=== PATIENT | male | born 1965 | race Caucasian/White ===

== ENCOUNTER → 2017-01-04 | Outpatient (CLI) | payer BC ==
--- NOTE | 2017-01-04 12:57 | MR ---
EXAMINATION TYPE: MR knee LT wo con DATE OF EXAM: 01/04/2017 COMPARISON: NONE HISTORY: Left knee pain TECHNIQUE: Multiplanar, multisequence imaging of the left knee is performed without IV contrast. FINDINGS: Medial and lateral menisci appear intact. No tear is identified. There may be some very holli nt subtle increased signal within the substance of the lateral meniscus anterior and posterior horns. Minimal degenerative change is not excluded. CRUCIATE LIGAMENTS: The anterior and posterior cruciate ligaments are intact and unremarkable. COLLATERAL LIGAMENTS: The medial collateral ligament and lateral collateral ligament complex are inta ct and unremarkable. EXTENSOR MECHANISM: Visualized quadriceps and patellar tendons are intact. EFFUSION: No significant suprapatellar joint effusion. POPLITEAL CYST: No popliteal/anne cyst. TRICOMPARTMENT SPACES: Preserved CARTILAGE: Preserved BONE MARROW SIGNAL: No focal abnormal marrow signal is appreciated. OTHER: No additional significant abnormality is appreciated. IMPRESSION: No suspicious acute changes. No significant anatomic distortion. Exam is nearly within normal limits. Very minimal degenerative change within the lateral meniscus cannot be entirely excluded.
== END | disposition home or self-care (01) ==
LOC: RADMRIMAIN 10:54
PROVIDERS: ATTEND Orthopaedic Surgery
DX: M25.562 Pain in left knee (principal)

== ENCOUNTER 2017-03-13 09:51 | Day surgery (SDC) | payer BC ==
--- NOTE | 2017-03-12 11:37 | HP ---
HISTORY AND PHYSICAL Surgery is 03/13/2017. Vel Osorio is a 51-year-old patient who was seen with progressive left knee pain. We discussed treatment options. He elected to proceed with arthroscopy. Consent was obtained. PAST MEDICAL HISTORY: Hypertension. PAST SURGICAL HISTORY: Appendectomy, cholecystectomy, bilateral shoulder arthroscopy, sinus surgery. DAILY MEDICATIONS: Losartan. ALLERGIES: None reported. SOCIAL HISTORY: Patient denies current tobacco use. PHYSICAL EXAMINATION: Physical evaluation of the left knee: Range of motion is 0 to 125 degrees. Tenderness along the medial joint line. Positive medial Michelle's. Ligaments stable. Hip rotation without pain. Distal neurovascular exam intact. Radiographs of the left knee revealed moderate medial compartment and lateral compartment osteoarthritis. MRI of the left knee revealed an abnormal the lateral meniscus. IMPRESSION: Internal derangement left knee with meniscal tear versus osteochondral tear. PLAN: Left knee arthroscopy with partial meniscectomy versus chondroplasty and debridement. Surgery scheduled for 03/13/2017. MMODL / IJN: [id number] /
[~2017-03-13 09:51] MED LIST: DEXAMETHASONE SOD PHOSPHATE 10 MG/ML 1 ML VIAL IV ONE; LACTATED RINGERS 1,000 ML IV SCH; MIDAZOLAM 2 MG/2 ML VIAL IV PRN; ONDANSETRON 4 MG/2 ML VIAL IVP ONE; SCOPOLAMINE 1.5MG/72HR PATCH TRANSDERM ONE; ceFAZolin IN SWFI 2 GM/20 ML SYRINGE IVP ONE
[2017-03-13] MEDS ORDERED: LIDOCAINE 1% 20 ML VIAL (10MG/ML) FOR IV START INTRADERMA ONE (10:45)
[2017-03-13] MEDS ORDERED: SUCCINYLCHOLINE CHLORIDE VIAL 200 MG/10 ML VIAL IV ONE (12:06)
[2017-03-13] MEDS ORDERED: PROPOFOL 10 MG/ML 20 ML VIAL IV ONE (12:06)
[2017-03-13] MEDS ORDERED: fentaNYL (PF) 50 MCG/ML 2 ML AMP ONE (12:06)
[2017-03-13] MEDS ORDERED: MIDAZOLAM 2 MG/2 ML VIAL ONE (12:06)
[2017-03-13] MEDS ORDERED: LIDOCAINE 1% INJ 10MG/ML (20 ML MDV) ONE (12:06)
[2017-03-13] MEDS ORDERED: BUPIVACAINE (PF) 0.25% 30 ML VIAL SQ ONE (12:06)
--- NOTE | 2017-03-13 12:55 | P.OP ---
Date of Procedure: 03/13/17 Preoperative Diagnosis: Internal derangement left knee Postoperative Diagnosis: 1. Tear medial and lateral meniscus left knee 2. 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 Grade 2 chondromalacia medial tibial plateau left knee 4. Reactive synovitis medial and suprapatellar compartments left knee Procedure(s) Performed: 1. Arthroscopic partial medial and lateral meniscectomy left knee 2. Arthroscopic chondroplasty patella left knee 3. Arthroscopic partial synovectomy medial and suprapatellar compartments left knee Implants: None Anesthesia: MALIK, local Surgeon: Bertram Lynn Estimated Blood Loss (ml): 10 Pathology: none sent Condition: stable Disposition: PACU Indications for Procedure: 51-year-old patient seen with progressive left knee pain. After treatment options were discussed, he elected to proceed with arthroscopy. Operative Findings: See description of procedure Description of Procedure: Patient was taken to the operative suite. Patient underwent a general anesthetic by the department of anesthesia. Patient was given preoperative antibiotics. The left lower extremity was placed in a well-padded arthroscopic leg vicente. The left leg was prepped and draped in the normal sterile orthopedic fashion. A lateral parapatellar and suprapatellar incision was made. Trochars were inserted. Arthroscopy was initiated. Suprapatellar pouch revealed thick reactive synovitis. The patellofemoral joint appeared to articulate congruently. There was grade 1/2 chondromalacia patella with some small osteochondral tears. There were grade 1 chondromalacia changes of the femoral sulcus.. The scope was guided into the medial gutter. No loose bodies or plica were identified. The scope was then guided into the medial compartment. A medial parapatellar incision was made. Trocar inserted followed by probe. There was small radial tear posterior horn medial meniscus. There were grade 2, she changes of the medial tibial plateau without osteochondral tears. There was some reactive synovitis anteriorly. The medial femoral condyle revealed grade 1 chondromalacia with no osteochondral tears. I performed a partial medial meniscectomy down to stable tissue. I performed a partial synovectomy. The residual meniscus was stable. Scope and probe were then guided into the intercondylar notch. Cruciates were identified, probed and found to be stable. The scope and probe were then guided into lateral compartment. It was small radial tear mid body lateral meniscus. There were no osteochondral deficits, no loose bodies or reactive synovitis. I performed a partial lateral meniscectomy down to stable tissue. The residual meniscus was stable. The scope was in guided back into the suprapatellar compartment. I introduced a motorized shaver into the super patellar compartment. I performed a chondroplasty of the patella. I performed a partial synovectomy. Shaver was removed. I took one more look on the entire knee, no residual debris. Instruments were now removed from the joint. The joint was infiltrated with .25% Marcaine. Steri-Strips were applied to the portal sites. Sterile dressings were applied. The patient was placed into a GORDON hose. No tourniquet was utilized. The patient was awakened, transferred to a bed and taken to recovery stable satisfactory condition.
[2017-03-13 13:03] VITALS: RESP 16; TEMP 96.7
[2017-03-13] MEDS: HYDROmorphone 0.5 MG/0.5 ML SYRINGE IVP PRN ×2 (13:13→13:22)
[2017-03-13] MEDS ORDERED: HYDROcodone/APAP 5-325MG 1 EACH TAB PO ONE (14:00)
[2017-03-13 14:23] VITALS: BP 131/73; PULSE 72
== END 2017-03-13 15:11 | disposition home or self-care (01) ==
LOC: OR 09:51
PROVIDERS: ATTEND Orthopaedic Surgery
DX: S83.242A Other tear of medial meniscus, current injury, left knee, initial encounter (principal); S83.282A Other tear of lateral meniscus, current injury, left knee, initial encounter; X58.XXXA Exposure to other specified factors, initial encounter; M22.42 Chondromalacia patellae, left knee; M65.862 Other synovitis and tenosynovitis, left lower leg; I10 Essential (primary) hypertension; E78.5 Hyperlipidemia, unspecified; Z79.899 Other long term (current) drug therapy
CPT/HCPCS: 29880; J1100; J0690; J2405; J1170

== ENCOUNTER → 2018-10-14 | Outpatient (CLI) | payer BC ==
[2018-10-14 11:22] LABS: HCT 40.3 % (39.0-53.0); HGB 13.3 gm/dL (13.0-17.5); MCH 30.2 pg (25.0-35.0); MCV 91.4 fL (80.0-100.0); Mean Platelet Volume 8.4; Platelet Count 131 k/uL (150-450); RBC 4.42 m/uL (4.30-5.90); WBC 4.8 k/uL (3.8-10.6)
[2018-10-14 11:30] LABS: African American GFR (CKD) >90 (>60 ml/min/1.73 sqM); Anion Gap 9 mmol/L; Blood Urea Nitrogen 17 mg/dL (9-20); Carbon Dioxide 25 mmol/L (22-30); Chloride 107 mmol/L (98-107); Potassium 4.2 mmol/L (3.5-5.1); Sodium 141 mmol/L (137-145)
== END | disposition home or self-care (01) ==
LOC: LABPAT 10:10
PROVIDERS: ATTEND Internal Medicine Interventional Cardiology
DX: Z01.812 Encounter for preprocedural laboratory examination (principal); R07.9 Chest pain, unspecified
CPT/HCPCS: 36415; 80051; 82565; 84520; 85027

== ENCOUNTER → 2018-10-27 | Day surgery (SDC) | payer BC ==
[2018-10-17 10:36] VITALS: BMI 26.0
[~2018-10-27] MED LIST changes: +ALPRAZolam 0.25 MG TAB PO PRN; +ALPRAZolam 0.5 MG TAB PO PRN; +ASPIRIN 325 MG TAB PO STA; +ATORVASTATIN 80 MG TAB PO STA; -DEXAMETHASONE SOD PHOSPHATE 10 MG/ML 1 ML VIAL IV ONE; +HEPARIN SODIUM 1,000 UN/ML (10ML VL) IV ONE; +HEPARIN SODIUM 1,000 UN/ML (10ML VL) ONE; +IOPAMIDOL-370 100ML BTL INJ ONE; -LACTATED RINGERS 1,000 ML IV SCH; +LIDOCAINE 1% INJ 10MG/ML (20 ML MDV) ONE; +LIDOCAINE 1% INJ 10MG/ML (20 ML MDV) SQ ONE; +MIDAZOLAM (PF) 2 MG/2 ML VIAL IVP ONE; -MIDAZOLAM 2 MG/2 ML VIAL IV PRN; +NITROGLYCERIN SL TABS 0.4 MG TAB SUBLINGUAL PRN; -ONDANSETRON 4 MG/2 ML VIAL IVP ONE; +RX INFO: IV CONTRAST WAS GIVEN 1 EACH MISC MISCELLANE PRN; -SCOPOLAMINE 1.5MG/72HR PATCH TRANSDERM ONE; +SODIUM CHLORIDE 0.9% 1,000 ML IV ONE; +SODIUM CHLORIDE 0.9% 1,000 ML IV SCH; +SODIUM CHLORIDE 0.9% 1,000 ML in EMPTY BAG 1 BAG IV ONE; +VERAPAMIL 2.5 MG/ML 2 ML AMP ONE; +VERAPAMIL SYRINGE (5 MG/10 ML) INTRAARTER ONE; -ceFAZolin IN SWFI 2 GM/20 ML SYRINGE IVP ONE
[2018-10-27 07:09] VITALS: RESP 16; TEMP 98.1
--- NOTE | 2018-10-27 08:39 | CC ---
CARDIAC CATHETERIZATION REPORT DATE OF SERVICE: 10/27/2018 PERFORMING PHYSICIAN: Keyur Candelaria MD. PROCEDURE PERFORMED: 1. Selective right and left coronary angiogram. 2. Left heart catheterization. INDICATION: This is a pleasant 53-year-old gentleman with history of hypertension and dyslipidemia, was experiencing shortness of breath or chest pain with exertion concerning for angina. Because of that, a heart catheterization was advised. APPROACH: Right radial artery. COMPLICATION: None. LEVEL OF SEDATION: Moderate. Sedation length of 13 minutes. PROCEDURE DESCRIPTION: After obtaining an informed consent, the patient was brought to the cardiac medical laboratory technicians. The right radial artery was cannulated using micropuncture technique, the micropuncture wire passed easily, then I placed a 6-Kosovan sheath in the right radial artery. After that, I did give the patient 2 mg of verapamil IA and 8000 units of heparin IV. Selective right and left coronary angiogram performed using JR4 and JL3.5 catheters. Left heart catheterization was performed using 6-Kosovan pigtail catheter. The procedure was completed without any complication. SELECTIVE CORONARY ANGIOGRAM: 1. The right coronary artery is a large caliber vessel and it is a dominant vessel and appeared to be angiographically normal. It distally bifurcates into PDA and PLV branches, both appeared to be angiographically normal. 2. The left main is angiographically normal. It bifurcates into the left circumflex and left anterior descending artery. 3. The left circumflex is a large caliber vessel. It is a nondominant vessel. The left circumflex is angiographically normal. 4. The LAD is angiographically normal. In the midportion, it gives rise into the first and second diagonal branches, both appeared to be angiographically normal. 5. HEMODYNAMICS- The left ventricular end-diastolic pressure was about 12 mmHg without significant gradient across the aortic valve. CONCLUSION: 1. Normal coronary angiogram. 2. Mildly elevated left ventricular end-diastolic pressure. POSTPROCEDURE MANAGEMENT: 1. Medical treatment. 2. Follow up with the patient. MMODL / IJN: [id number] /
--- NOTE | 2018-10-27 08:39 | LTR ---
DATE OF SERVICE: 10/27/2018 RE: Vel Osorio Dear Dr. Ivey; Mr. Vel Osorio underwent a heart catheterization today and that revealed normal coronaries. I want to thank you for allowing us to participate in his care and please do not hesitate to call if you have any questions or concerns. Sincerely, MD LUIZA Verduzco / TIA: [id number] /
[2018-10-27 12:13] VITALS: BP 124/77; PULSE 60
== END | disposition home or self-care (01) ==
LOC: CATHCVL 06:21
PROVIDERS: ATTEND Internal Medicine Interventional Cardiology
DX: R07.9 Chest pain, unspecified (principal); R06.02 Shortness of breath
CPT/HCPCS: 93458; C1769; C1894; J2001; J1644; Q9967; J2250

== ENCOUNTER 2018-11-26 07:43 | Day surgery (SDC) | payer BC ==
[2018-11-20 12:02] VITALS: BMI 26.0
[~2018-11-26 07:43] MED LIST changes: -ALPRAZolam 0.25 MG TAB PO PRN; -ALPRAZolam 0.5 MG TAB PO PRN; -ASPIRIN 325 MG TAB PO STA; -ATORVASTATIN 80 MG TAB PO STA; -HEPARIN SODIUM 1,000 UN/ML (10ML VL) IV ONE; -HEPARIN SODIUM 1,000 UN/ML (10ML VL) ONE; -IOPAMIDOL-370 100ML BTL INJ ONE; +LIDOCAINE 1% 20 ML VIAL (10MG/ML) FOR IV START INTRADERMA PRN; -LIDOCAINE 1% INJ 10MG/ML (20 ML MDV) ONE; -LIDOCAINE 1% INJ 10MG/ML (20 ML MDV) SQ ONE; -MIDAZOLAM (PF) 2 MG/2 ML VIAL IVP ONE; -NITROGLYCERIN SL TABS 0.4 MG TAB SUBLINGUAL PRN; -RX INFO: IV CONTRAST WAS GIVEN 1 EACH MISC MISCELLANE PRN; -SODIUM CHLORIDE 0.9% 1,000 ML IV ONE; -SODIUM CHLORIDE 0.9% 1,000 ML IV SCH; -SODIUM CHLORIDE 0.9% 1,000 ML in EMPTY BAG 1 BAG IV ONE; -VERAPAMIL 2.5 MG/ML 2 ML AMP ONE; -VERAPAMIL SYRINGE (5 MG/10 ML) INTRAARTER ONE
[2018-11-26 08:11] VITALS: TEMP 97.7
[2018-11-26] MEDS: LACTATED RINGERS 1,000 ML IV SCH ×2 (08:19→08:24)
[2018-11-26] MEDS ORDERED: PROPOFOL 10 MG/ML 20 ML VIAL IV ONE (08:23)
[2018-11-26] MEDS ORDERED: LIDOCAINE 1% INJ 10MG/ML (20 ML MDV) ONE (08:23)
--- NOTE | 2018-11-26 08:26 | P.GSHP ---
History of Present Illness H&P Date: 11/26/18 Chief Complaint: Colon cancer screening Patient here today for screening colonoscopy. He has not had previously. No bowel related complaints. No family history of colon cancer. Past Medical History Past Medical History: Hyperlipidemia, Hypertension, Osteoarthritis (OA), Sleep Apnea/CPAP/BIPAP Additional Past Medical History / Comment(s): IDIOPATHIC THROMBOCYTOPENIA. History of Any Multi-Drug Resistant Organisms: None Reported Past Surgical History: Appendectomy, Cholecystectomy, Heart Catheterization, Orthopedic Surgery Additional Past Surgical History / Comment(s): BILATERAL ROTATOR CUFF REPAIR. LEFT KNEE ARTHROSCOPY Past Anesthesia/Blood Transfusion Reactions: No Reported Reaction Smoking Status: Never smoker - Past Family History Mother Family Medical History: Cancer Additional Family Medical History / Comment(s): . Medications and Allergies Home Medications Medication Instructions Recorded Confirmed Type Losartan [Cozaar] 50 mg PO QAM 03/08/17 11/26/18 History Multivitamins, Thera [Multivitamin 1 tab PO DAILY 03/08/17 11/26/18 History (formulary)] Rosuvastatin [Crestor] 10 mg PO QAM 03/08/17 11/26/18 History Pantoprazole Sodium [Protonix] 40 mg PO DAILY 11/20/18 11/26/18 History Allergies Allergy/AdvReac Type Severity Reaction Status Date / Time No Known Allergies Allergy Verified 11/26/18 08:11 Surgical - Exam Vital Signs Temp Pulse Resp BP Pulse Ox 97.7 F 60 17 120/80 99 11/26/18 08:10 11/26/18 08:10 11/26/18 08:10 11/26/18 08:10 11/26/18 08:10 Physical exam: General: Well-developed, well-nourished HEENT: Normocephalic, sclerae nonicteric Abdomen: Nontender, nondistended Extremities: No edema Neuro: Alert and oriented Assessment and Plan (1) Colon cancer screening Narrative/Plan: Will proceed with colonoscopy at this time Current Visit: Yes Status: Acute Code(s): Z12.11 - ENCOUNTER FOR SCREENING FOR MALIGNANT NEOPLASM OF COLON SNOMED Code(s): 084866391
--- NOTE | 2018-11-26 08:56 | P.PCN ---
Date of Procedure: 11/26/18 Procedure(s) Performed: PREOPERATIVE DIAGNOSIS: Colon cancer screening POSTOPERATIVE DIAGNOSIS: Normal exam PROCEDURE: Colonoscopy ANESTHESIA: MAC SURGEON: Alton Bland M.D. SPECIMENS: None ENDOSCOPIC PROCEDURE: The patient was placed on the endoscopy table in the left decubitus position. The Olympus pediatric colonoscope was inserted into the anus and passed under direct visualization to the base of the proximal transverse colon. The scope was unable to advance into the cecum despite multiple maneuvers and adjusting the tension on the scope. We were utilizing the entire length of the scope. At that point I decided to remove the pediatric colonoscope and switched to an adult colonoscope. With the use of the adult colonoscope we were able to advance to the cecum however we could not intubate the base of the cecum and see beneath the ileocecal valve. The base of the cecum was not well-visualized. No abnormalities however were evident with the view provided. The ascending transverse descending sigmoid and rectum appeared normal as well. There was no visible diverticulosis. Digital rectal examination was normal. The patient was taken to the recovery room in stable condition per anesthesia guidelines. RECOMMENDATIONS: Increase fiber. Follow-up colonoscopy 10 years.
[2018-11-26 09:14] VITALS: BP 127/80; PULSE 55; RESP 16
== END 2018-11-26 09:25 | disposition home or self-care (01) ==
LOC: ORWHC2ENDO 07:43
PROVIDERS: ATTEND Surgery
DX: Z12.11 Encounter for screening for malignant neoplasm of colon (principal); I10 Essential (primary) hypertension; E78.5 Hyperlipidemia, unspecified; I20.9 Angina pectoris, unspecified; M19.90 Unspecified osteoarthritis, unspecified site; K21.9 Gastro-esophageal reflux disease without esophagitis; D69.3 Immune thrombocytopenic purpura; G47.33 Obstructive sleep apnea (adult) (pediatric); Z79.899 Other long term (current) drug therapy; Z90.49 Acquired absence of other specified parts of digestive tract; Z80.9 Family history of malignant neoplasm, unspecified
CPT/HCPCS: G0121; J2001; J2704

== ENCOUNTER 2024-05-03 08:44 | Observation (INO) | payer BC ==
[2024-05-03 09:26] LABS: Basophils # (A) 0.1 k/uL (0-0.2); Basophils % (A) 1 %; Eosinophils # (A) 0.2 k/uL (0-0.7); Eosinophils % (A) 3 %; HCT 43.8 % (39.0-53.0); HGB 14.7 gm/dL (13.0-17.5); Lymphocytes # (A) 1.6 k/uL (1.0-4.8); Lymphocytes % (A) 27 %; MCH 30.1 pg (25.0-35.0); MCHC 33.4 g/dL (31.0-37.0); Mean Platelet Volume 7.4; Monocytes # (A) 0.3 k/uL (0-1.0); Monocytes % (A) 6 %; Neutrophils # (A) 3.6 k/uL (1.3-7.7); Neutrophils % (A) 61 %; Platelet Count 165 k/uL (150-450); RBC 4.87 m/uL (4.30-5.90); WBC 5.9 k/uL (3.8-10.6)
[2024-05-03 09:32] LABS: ALT 33 U/L (4-49); AST 26 U/L (17-59); African American GFR (CKD) >90 (>60 ml/min/1.73 sqM); Albumin 4.6 g/dL (3.5-5.0); Alkaline Phosphatase 80 U/L (38-126); Anion Gap 9 mmol/L; Blood Urea Nitrogen 13 mg/dL (9-20); Calcium 9.4 mg/dL (8.4-10.2); Carbon Dioxide 24 mmol/L (22-30); Chloride 106 mmol/L (98-107); Glucose 115 mg/dL (74-99); Magnesium 2.1 mg/dL (1.6-2.3); Non-African American GFR(CKD) 79 (>60 ml/min/1.73 sqM); Potassium 4.2 mmol/L (3.5-5.1); Sodium 139 mmol/L (137-145); Total Bilirubin 0.5 mg/dL (0.2-1.3); Total Protein 7.1 g/dL (6.3-8.2)
[2024-05-03 09:35] LABS: INR 0.9 (<1.2); Partial Thromboplastin Time 24.4 sec (22.0-30.0); Prothrombin Time 9.8 sec (10.0-12.5)
--- NOTE | 2024-05-03 09:43 | XR ---
EXAMINATION TYPE: XR chest 2V DATE OF EXAM: 05/03/2024 9:34 AM COMPARISON: 01/19/2013 CLINICAL INDICATION: Male, 58 years old with history of Chest Pain, high blood pressure TECHNIQUE: XR chest 2V view(s) obtained. FINDINGS: The heart size is normal. The pulmonary vasculature is normal. The lungs are clear. IMPRESSION: 1. No acute pulmonary process. [facility], , 05/03/2024 9:40 AM
--- NOTE | 2024-05-03 10:45 | ED ---
Chest Pain HPI - General Chief Complaint: Chest Pain Stated Complaint: high blood pressure Time Seen by Provider: 05/03/24 08:48 Source: patient, RN notes reviewed Mode of arrival: ambulatory Limitations: no limitations - History of Present Illness Initial Comments: 58-year-old male presents emergency department chief complaint of palpitations, exertional dyspnea and hypertension. Patient states he does have a history of hypertension hyperlipidemia is notices blood pressure has been elevated over the last several days states he has not felt well he states that he has increasing chest discomfort and exertional dyspnea with minimal exertion. He had a heart cath 5 years ago. Patient states has been taking all his medications as directed. States symptoms do improve at rest. Denies any leg leg swelling. No history of DVT or PE. - Related Data Home Medications Medication Instructions Recorded Confirmed Losartan [Cozaar] 50 mg PO QAM 03/08/17 11/26/18 Multivitamins, Thera [Multivitamin 1 tab PO DAILY 03/08/17 11/26/18 (formulary)] Rosuvastatin [Crestor] 10 mg PO QAM 03/08/17 11/26/18 Pantoprazole Sodium [Protonix] 40 mg PO DAILY 11/20/18 11/26/18 Allergies Allergy/AdvReac Type Severity Reaction Status Date / Time No Known Allergies Allergy Verified 05/03/24 08:49 Review of Systems ROS Statement: Those systems with pertinent positive or pertinent negative responses have been documented in the HPI. ROS Other: All systems not noted in ROS Statement are negative. EKG Findings - EKG Comments: EKG Findings:: EKG performed at 9: 00 sinus rhythm rate of 63 NC 181 QRS 96 QT/QTc 417/424 - EKG Results: EKG: interpreted by AILYN Past Medical History Past Medical History: Hyperlipidemia, Hypertension, Osteoarthritis (OA), Pneumonia, Sleep Apnea/CPAP/BIPAP Additional Past Medical History / Comment(s): IDIOPATHIC THROMBOCYTOPENIA. UTI. USES CPAP. History of Any Multi-Drug Resistant Organisms: None Reported Past Surgical History: Appendectomy, Cholecystectomy, Orthopedic Surgery Additional Past Surgical History / Comment(s): BILATERAL ROTATOR CUFF REPAIR. Past Anesthesia/Blood Transfusion Reactions: No Reported Reaction Past Psychological History: No Psychological Hx Reported Smoking Status: Never smoker Past Alcohol Use History: Occasional Past Drug Use History: None Reported - Past Family History Mother Family Medical History: Cancer Additional Family Medical History / Comment(s): . General Exam Limitations: no limitations General appearance: alert, in no apparent distress Head exam: Present: atraumatic, normocephalic, normal inspection Eye exam: Present: normal appearance, PERRL, EOMI. Absent: scleral icterus, conjunctival injection, periorbital swelling ENT exam: Present: normal exam, normal oropharynx, mucous membranes moist Neck exam: Present: normal inspection, full ROM. Absent: tenderness, meningismus, lymphadenopathy Respiratory exam: Present: normal lung sounds bilaterally. Absent: respiratory distress, wheezes, rales, rhonchi, stridor Cardiovascular Exam: Present: regular rate, normal rhythm, normal heart sounds. Absent: systolic murmur, diastolic murmur, rubs, gallop, clicks GI/Abdominal exam: Present: soft, normal bowel sounds. Absent: distended, tenderness, guarding, rebound, rigid Extremities exam: Present: normal capillary refill. Absent: pedal edema Neurological exam: Present: alert, oriented X3, CN II-XII intact Course Vital Signs 05/03/24 05/03/24 05/03/24 08:49 09:10 09:30 Temperature 98.3 F Pulse Rate 67 67 67 Respiratory 18 16 16 Rate Blood Pressure 163/102 153/98 169/109 O2 Sat by Pulse 98 99 98 Oximetry 05/03/24 10:00 Temperature Pulse Rate 66 Respiratory 20 Rate Blood Pressure 137/89 O2 Sat by Pulse 96 Oximetry Chest Pain MDM - MDM Was pt. sent in by a medical professional or institution (, [facility], FAMILY PROTECTION SPECIALIST, urgent care, hospital, or assisted...) When possible be specific @ -No Did you speak to anyone other than the patient for history (EMS, parent, family, police, friend...)? What history was obtained from this source @ -No Did you review nursing and triage notes (agree or disagree)? Why? @ -I reviewed and agree with nursing and triage notes Were old charts reviewed (outside hosp., previous admission, EMS record, old EKG, old radiological studies, urgent care reports/EKG's, assisted records)? Report findings @ -No old charts were reviewed Differential Diagnosis (chest pain, altered mental status, abdominal pain women, abdominal pain men, vaginal bleeding, weakness, fever, dyspnea, syncope, headache, dizziness, GI bleed, back pain, seizure, CVA, palpatations, mental health, musculoskeletal)? @ -Differential Chest Pain: Stable Angina, Unstable Angina, STEMI, NSTEMI Aortic Dissection, Pneumothorax, M usculoskeletal, Esophageal Spasm GERD, Cholecystitis, Pancreatitis, Zoster, this is not meant to be an all-inclusive list. EKG interpreted by me (3pts min.). @ -As above X-rays interpreted by me (1pt min.). @ -[Chest x-ray shows no acute cardiopulmonary process CT interpreted by me (1pt min.). @ -None done U/S interpreted by me (1pt. min.). @ -None done What testing was considered but not performed or refused? (CT, X-rays, U/S, labs)? Why? @ -None What meds were considered but not given or refused? Why? @ -None Did you discuss the management of the patient with other professionals (professionals i.e. , PA, FAMILY PROTECTION SPECIALIST, lab, RT, psych nurse, social services aide, benzene worker, teacher, chief medical officer, watch caser)? Give summary @ -EM for admission covering for Dr. Ivey Was smoking cessation discussed for >3mins.? @ -No Was critical care preformed (if so, how long)? @ -No Were there social determinants of health that impacted care today? How? (Homelessness, low income, unemployed, alcoholism, drug addiction, transportation, low edu. Level, literacy, decrease access to med. care, [facility], rehab)? @ -No Was there de-escalation of care discussed even if they declined (Discuss DNR or withdrawal of care, Hospice)? DNR status @ -No What co-morbidities impacted this encounter? (DM, HTN, Smoking, COPD, CAD, Cancer, CVA, ARF, Chemo, Hep., AIDS, mental health diagnosis, sleep apnea, morbid obesity)? @ -Hypertension hyperlipidemia Was patient admitted / discharged? Hospital course, mention meds given and route, prescriptions, significant lab abnormalities, going to OR and other pertinent info. @ -[Admitted patient presented for exertional dyspnea hypertension chest discomfort and lightheadedness. Concerning for underlying ACS initial troponin is negative. Patient will be admitted for repeat laboratory studies echocardiogram cardiology evaluation Undiagnosed new problem with uncertain prognosis? @ -No Drug Therapy requiring intensive monitoring for toxicity (Heparin, Nitro, Insulin, Cardizem)? @ -No Were any procedures done? @ -No Diagnosis/symptom? @ -Exertional dyspnea, chest pain hypertension Acute, or Chronic, or Acute on Chronic? @ -Acute Uncomplicated (without systemic symptoms) or Complicated (systemic symptoms)? @ -[Complicated Side effects of treatment? @ -No Exacerbation, Progression, or Severe Exacerbation? @ -No Poses a threat to life or bodily function? How? (Chest pain, [place], [place], pneumonia, PE, COPD, DKA, ARF, appy, cholecystitis, CVA, Diverticulitis, Homicidal, Suicidal, threat to staff... and all critical care pts) @ -Yes ACS concerning for cardiac function risk Disposition Clinical Impression: Hypertension, Exertional dyspnea, Chest pain Disposition: ADMITTED IP TO THIS HOSP Condition: Fair Referrals: Tate Ivey DO [Primary Care Provider] - 1-2 days Time of Disposition: 10:51
[2024-05-03] MEDS ORDERED: NITROGLYCERIN SL TABS 0.4 MG TAB SUBLINGUAL PRN (10:51)
[2024-05-03] MEDS: ASPIRIN 81 MG PO STA (10:57)
[2024-05-03] MEDS ORDERED: hydrALAZINE HCL 20 MG/ML 1 ML VIAL IVP PRN (13:13)
--- NOTE | 2024-05-03 13:16 | P.HPIM ---
History of Present Illness H&P Date: 05/03/24 History of present illness; patient 58-year-old gentleman with past medical history significant for hypertension, hyperlipidemia presented to the ER because of exertional dyspnea for 1 week. Patient states that he was all right 1 week back when started noticing that he was not feeling well, patient noted that his blood pressure was elevated with a systolic ranging in the 160s to 170s. Patient was also noticing that he was getting short of breath on exertion. Shortness of breath was not present on rest. There was no complaint of orthopnea or PND. Patient was complaining of chest tightness at that time. There was no complaint of fever or chills. Patient denies any swelling of feet. Because of this exertional dyspnea, patient brought to the ER. Initial lab work done in the ER showed WBC 5.9, hemoglobin 14.7, platelet count 165, D-dimer 0.17, sodium 139, potassium 4.2, BUN 13, creatinine 1.06, glucose 115, troponin 0.012 EKG done in the ER showed heart rate of63 , no ST segment elevation or depression seen, no T-wave inversions seen. Chest x-ray done in the ER showed no acute cardiopulmonary process Patient admitted to internal medicine service REVIEW OF SYSTEMS: CONSTITUTIONAL: No fever, no malaise, no fatigue. HEENT: No recent visual problems or hearing problems. Denied any sore throat. CARDIOVASCULAR: As mentioned above PULMONARY: as mentioned above GASTROINTESTINAL: No diarrhea, no nausea, no vomiting, no abdominal pain. NEUROLOGICAL: No headaches, no weakness, no numbness. HEMATOLOGICAL: Denies any bleeding or petechiae. GENITOURINARY: Denies any burning micturition, frequency, or urgency. MUSCULOSKELETAL/RHEUMATOLOGICAL: Denies any joint pain, swelling, or any muscle pain. ENDOCRINE: Denies any polyuria or polydipsia. The rest of the 14-point review of systems is negative. PHYSICAL EXAMINATION: GENERAL: The patient is alert and oriented x3, not in any acute distress. Well developed, well nourished. HEENT: Pupils are round and equally reacting to light. EOMI. No scleral icterus. No conjunctival pallor. Normocephalic, atraumatic. No pharyngeal erythema. No thyromegaly. CARDIOVASCULAR: S1 and S2 present. No murmurs, rubs, or gallops. PULMONARY: Chest is clear to auscultation, no wheezing or crackles. ABDOMEN: Soft, nontender, nondistended, normoactive bowel sounds. No palpable organomegaly. MUSCULOSKELETAL: No joint swelling or deformity. EXTREMITIES: No cyanosis, clubbing, or pedal edema. NEUROLOGICAL: Gross neurological examination did not reveal any focal deficits. SKIN: No rashes. Assessment and plan Exertional dyspnea Chest pain Hypertension Hyperlipidemia Monitor vital signs Monitor CBC Monitor CMP Continue telemetry monitoring Trend troponin Ordered proBNP Ordered 2D echo Ordered HbA1c level, ordered lipid panel Resume home meds Consult cardiology Labs and medication were reviewed.. Continue same treatment. Continue with symptomatic treatment. Resume home medication. Monitor labs and vitals. DVT and GI prophylaxis. Further recommendations as per clinical course of the patient Dictation was produced using [employer] dictation software. please excuse any grammatical, word or spelling errors. Past Medical History Past Medical History: Hyperlipidemia, Hypertension, Osteoarthritis (OA), Pneumonia, Sleep Apnea/CPAP/BIPAP Additional Past Medical History / Comment(s): IDIOPATHIC THROMBOCYTOPENIA. UTI. USES CPAP. History of Any Multi-Drug Resistant Organisms: None Reported Past Surgical History: Appendectomy, Cholecystectomy, Orthopedic Surgery Additional Past Surgical History / Comment(s): BILATERAL ROTATOR CUFF REPAIR. Past Anesthesia/Blood Transfusion Reactions: No Reported Reaction Past Psychological History: No Psychological Hx Reported Smoking Status: Never smoker Past Alcohol Use History: Occasional Past Drug Use History: None Reported - Past Family History Mother Family Medical History: Cancer Additional Family Medical History / Comment(s): . Medications and Allergies Home Medications Medication Instructions Recorded Confirmed Type Multivitamins, Thera [Multivitamin 1 tab PO DAILY 03/08/17 05/03/24 History (formulary)] Rosuvastatin [Crestor] 10 mg PO DAILY 03/08/17 05/03/24 History Losartan Potassium 100 mg PO DAILY 05/03/24 05/03/24 History Allergies Allergy/AdvReac Type Severity Reaction Status Date / Time No Known Allergies Allergy Verified 05/03/24 12:07 Physical Exam Vitals: Vital Signs Temp Pulse Resp BP Pulse Ox 05/03/24 10:00 66 20 137/89 96 05/03/24 09:30 67 16 169/109 98 05/03/24 09:10 67 16 153/98 99 05/03/24 08:49 98.3 F 67 18 163/102 98 Intake and Output 05/02/24 05/03/24 05/03/24 22:59 06:59 14:59 Other: Weight 104.326 kg Results CBC & Chem 7: 05/03/24 09:09 05/03/24 09:09 Labs: Abnormal Lab Results - Last 24 Hours (Table) 05/03/24 05/03/24 Range/Units 09:09 09:09 PT 9.8 L (10.0-12.5) sec Glucose 115 H (74-99) mg/dL
[2024-05-03] MEDS: ACETAMINOPHEN TAB 325 MG TAB PO PRN (18:07)
[2024-05-04 01:54] VITALS: RESP 16
[2024-05-04] MEDS ORDERED: ASPIRIN 325 MG TAB PO SCH (09:00)
[2024-05-04 09:12] LABS: ALT 27 U/L (10-49); AST 21 U/L (14-35); Albumin 4.1 g/dL (3.8-4.9); Albumin/Globulin Ratio 1.86 Ratio (1.60-3.17); Alkaline Phosphatase 71 U/L (41-126); Blood Urea Nitrogen 14.3 mg/dL (9.0-27.0); Calcium 8.9 mg/dL (8.7-10.3); Carbon Dioxide 22.8 mmol/L (21.6-31.8); Chloride 107 mmol/L (96-109); Chol/HDL Ratio 3.49 Ratio; Globulin 2.2 g/dL (1.6-3.3); Glucose 121 mg/dL (70-110); LDL Cholesterol,Calculated 89.2 mg/dL (0.0-131.0); Potassium 4.3 mmol/L (3.5-5.5); Sodium 140 mmol/L (135-145); Total Bilirubin 0.4 mg/dL (0.3-1.2); Total Protein 6.3 g/dL (6.2-8.2)
[2024-05-04 09:34] LABS: Basophils # (A) 0.06 X 10*3/uL (0.00-0.10); Basophils % (A) 1.1 %; Eosinophils # (A) 0.14 X 10*3/uL (0.04-0.35); Eosinophils % (A) 2.6 %; HCT 42.5 % (39.6-50.0); HGB 14.2 g/dL (13.0-17.0); Lymphocytes # (A) 1.85 X 10*3/uL (0.90-5.00); Lymphocytes % (A) 34.6 %; MCH 29.9 pg (27.0-32.0); MCHC 33.4 g/dL (32.0-37.0); MCV 89.5 FL (80.0-97.0); Mean Platelet Volume 10.7 FL (9.5-12.2); Monocytes # (A) 0.54 X 10*3/uL (0.20-1.00); Monocytes % (A) 10.1 %; NRBC Per 100 WBC 0 X 10*3/uL (0.00-0.01); Neutrophils # (A) 2.74 X 10*3/uL (1.80-7.70); Neutrophils % (A) 51.4 %; Platelet Count 177 X 10*3/uL (140-440); RBC 4.75 X 10*6/uL (4.40-5.60); RDW 12.8 % (11.5-14.5); WBC 5.34 X 10*3/uL (4.50-10.00)
[2024-05-04] MEDS: MULTIVITAMINS, THERA 1 EACH TAB PO SCH (10:13)
[2024-05-04] MEDS: LOSARTAN 50 MG TAB PO SCH (10:13)
[2024-05-04] MEDS: ATORVASTATIN 20 MG TAB PO SCH (10:13)
[2024-05-04] MEDS: hydroCHLOROthiazide 25 MG TAB PO SCH (10:13)
--- NOTE | 2024-05-04 11:35 | P.CRDCN ---
History of Present Illness History of present illness: HISTORY OF PRESENT ILLNESS: This is a 58-year-old male with a past medical history significant for obstructive sleep apnea, hypertension and hyperlipidemia. Patient used to follow in the office with Dr. Romero but has not been seen since 2019. We have been asked to see the patient in consultation for chest pain. Patient examined at the bedside. Patient states over the past couple weeks he has been feeling short of breath. He also reports he has been having some dizzy spells. He denies having any episodes of syncope. He also reports having some mild chest discomfort that would only last for a few seconds and then go away on its own. He states on Saturday he checked his blood pressure and it was 160s over 90s. He states on Saturday he checked his blood pressure again with similar numbers. He states on Saturday he just was not feeling right so he decided to come to the emergency room for further evaluation. At the time of examination, patient denies any chest pain or pressure. Patient's blood pressures have been elevated with a systolic between [id number]. Patient is a non-smoker. He does report alcohol use twice a week with 4-5 drinks each time. DIAGNOSTICS: - EKG reveals sinus mechanism with no signs of acute ischemia - Chest xray negative for acute process - Laboratory data: WBC 5.34. Hemoglobin 14.2. Platelet count 177. D-dimer 0.17. Sodium 140. Potassium 4.3. BUN 14. Creatinine 1.0. Troponin negative x 3. - Current home cardiac medications include rosuvastatin 10 mg daily and losartan 100 mg daily. - Most recent echocardiogram obtained in September 2018 revealed normal EF, mild TR, mild AR, mild to moderate MR - Cardiac catheterization history: 2019 revealing normal coronary arteries REVIEW OF SYSTEMS: At the time of my exam: CONSTITUTIONAL: Denies fever or chills. HEENT: Denies blurred vision, vision changes, or eye pain. Denies hemoptysis CARDIOVASCULAR: Denies chest pain. Denies orthopnea. Denies PND. Denies palpitations RESPIRATORY: Denies shortness of breath. GASTROINTESTINAL: Denies abdominal pain. Denies nausea or vomiting. HEMATOLOGIC: Denies bleeding disorders. GENITOURINARY: Denies any blood in urine. SKIN: Denies pruitis. Denies rash. PHYSICAL EXAM: VITAL SIGNS: Reviewed. GENERAL: Well-developed in no acute distress. HEENT: Head is normocephalic. Pupils are equal, round. Sclerae anicteric. Mucous membranes of the mouth are moist. Neck supple. No JVD or thyromegaly LUNGS: Respirations even and unlabored. Lungs essentially clear to auscultation bilaterally. HEART: Regular rate and rhythm. S1 and S2 heard. Systolic murmur noted. ABDOMEN: Soft. Nondistended. Nontender. EXTREMITIES: Normal range of motion. No clubbing or cyanosis. Peripheral pulses intact. No lower extremity edema NEUROLOGIC: Awake and alert. Oriented x 3. ASSESSMENT: Chest pain, troponin negative x 3 Hypertension, uncontrolled Hyperlipidemia Normal coronary arteries, per cath in 2019 Obstructive sleep apnea with CPAP use Obesity: BMI 31.2 Occasional alcohol use, 1-2 times per week with 4-5 drinks each time PLAN: An acute coronary event has been ruled out Obtain 2D echo to assess cardiac structure and function Resume home cardiac medications Add hydrochlorothiazide 25 mg daily for optimal blood pressure control Decrease aspirin to 81 mg daily Patient to undergo stress echocardiogram today Abstinence from alcohol recommended Further recommendations pending patient course Nurse practitioner note has been reviewed by physician. Signing provider agrees with the documented findings, assessment, and plan of care documented by PSYCHIATRIC CLINICAL NURSE SPECIALIST as a scribe. Past Medical History Past Medical History: Hyperlipidemia, Hypertension, Osteoarthritis (OA), Pneumonia, Sleep Apnea/CPAP/BIPAP Additional Past Medical History / Comment(s): IDIOPATHIC THROMBOCYTOPENIA. UTI. USES CPAP. History of Any Multi-Drug Resistant Organisms: None Reported Past Surgical History: Appendectomy, Cholecystectomy, Orthopedic Surgery Additional Past Surgical History / Comment(s): BILATERAL ROTATOR CUFF REPAIR. Past Anesthesia/Blood Transfusion Reactions: No Reported Reaction Past Psychological History: No Psychological Hx Reported Smoking Status: Never smoker Past Alcohol Use History: Occasional Past Drug Use History: None Reported - Past Family History Mother Family Medical History: Cancer Additional Family Medical History / Comment(s): . Medications and Allergies Home Medications Medication Instructions Recorded Confirmed Type Multivitamins, Thera [Multivitamin 1 tab PO DAILY 03/08/17 05/03/24 History (formulary)] Rosuvastatin [Crestor] 10 mg PO DAILY 03/08/17 05/03/24 History Losartan Potassium 100 mg PO DAILY 05/03/24 05/03/24 History Allergies Allergy/AdvReac Type Severity Reaction Status Date / Time No Known Allergies Allergy Verified 01/12/25 12:07 Physical Exam Vitals: Vital Signs Temp Pulse Pulse Resp BP BP Pulse Ox 05/04/24 08:47 97 05/04/24 07:00 98.3 F 60 16 141/88 97 05/04/24 01:54 98.2 F 73 16 143/79 98 05/03/24 17:50 98.0 F 59 L 17 165/96 96 05/03/24 15:05 97.8 F 60 17 163/94 98 05/03/24 14:00 67 18 147/92 97 05/03/24 13:00 61 16 140/99 99 05/03/24 12:00 64 14 141/90 98 Intake and Output 05/03/24 05/04/24 05/04/24 22:59 06:59 14:59 Other: # Voids 1 2 Results 05/04/24 05:40 05/04/24 05:40 Cardiac Enzymes 05/03/24 05/03/24 05/04/24 Range/Units 12:44 14:42 05:40 AST 21 (14-35) U/L Troponin I <0.012 <0.012 (0.000-0.034) ng/mL Lipids 05/04/24 Range/Units 05:40 Triglycerides 132.00 (0.00-149.00) mg/dL Cholesterol 162.00 (0.00-200.00) mg/dL HDL Cholesterol 46.40 (40.00-60.00) mg/dL Cholesterol/HDL Ratio 3.49 Ratio CBC 05/04/24 Range/Units 05:40 WBC 5.34 (4.50-10.00) X 10*3/uL RBC 4.75 (4.40-5.60) X 10*6/uL Hgb 14.2 (13.0-17.0) g/dL Hct 42.5 (39.6-50.0) % Plt Count 177 (140-440) X 10*3/uL Comprehensive Metabolic Panel 05/04/24 Range/Units 05:40 Sodium 140 (135-145) mmol/L Potassium 4.3 (3.5-5.5) mmol/L Chloride 107 (96-109) mmol/L Carbon Dioxide 22.8 (21.6-31.8) mmol/L BUN 14.3 (9.0-27.0) mg/dL Creatinine 1.0 (0.6-1.5) mg/dL Glucose 121 H (70-110) mg/dL Calcium 8.9 (8.7-10.3) mg/dL AST 21 (14-35) U/L ALT 27 (10-49) U/L Alkaline Phosphatase 71 (41-126) U/L Total Protein 6.3 (6.2-8.2) g/dL Albumin 4.1 (3.8-4.9) g/dL Current Medications Generic Name Dose Route Start Last Admin Trade Name Freq PRN Reason Stop Dose Admin Acetaminophen 650 mg 05/03/24 18:02 05/03/24 18:07 Acetaminophen Tab 325 Mg Tab PO 650 mg Q4HR PRN Administration Fever and/ or Pain Aspirin 81 mg 05/05/24 09:00 Aspirin 81 Mg PO DAILY [facility] Atorvastatin Calcium 20 mg 05/04/24 09:00 05/04/24 10:13 Atorvastatin 20 Mg Tab PO 20 mg DAILY NICHO Administration Hydrochlorothiazide 25 mg 05/04/24 09:15 05/04/24 10:13 Hydrochlorothiazide 25 Mg Tab PO 25 mg DAILY NICHO Administration Losartan Potassium 100 mg 05/04/24 09:00 05/04/24 10:13 Losartan 50 Mg Tab PO 100 mg DAILY NICHO Administration Multivitamins 1 each 05/04/24 09:00 05/04/24 10:13 Multivitamins, Thera 1 Each Tab PO 1 each DAILY NICHO Administration Nitroglycerin 0.4 mg 05/03/24 10:51 Nitroglycerin Sl Tabs 0.4 Mg Tab SUBLINGUAL Q5M PRN Chest Pain Intake and Output 05/03/24 05/04/24 05/04/24 22:59 06:59 14:59 Other: # Voids 1 2 05/04/24 05:40 05/04/24 05:40
--- NOTE | 2024-05-04 13:17 | CA ---
Stress Echo Report Vel Osorio Age: 58 Gender: M : 1965 Exam Date: 05/04/2024 12:20 Exam Location: [facility] Ht (in): 72 Wt (lb): 230 Ordering Physician: Dora Tony Referring Physician: [id number] Rolling Machine Tender: Radha Rios RDCS Technologist Procedure CPT: Indication: CP ICD-9 Codes: Rhythm: Patient History: CHEST PAIN, DIFFICULTY IN BREATHING, PALPITATIONS, NUMBNESS IN FACE/NECK, HTN, HYPERCHOLESTEROLEMIA, PRIOR HEART CATH Cardiac Medications: Medications in past 24 hours: Contrast: Definity Stress Results Protocol: Demetrius Total dose(mL): 3 Exercise Duration (min:sec): 7:[address] Depression (mm): 0 Angina Score: 0 Mehta Score: 7 METS: 8.3 Resting HR: 69 Resting BP: 129 / 53 Peak HR: 149 Peak BP: 187 / 86 Max Predicted HR: 164 91 % Max Predicted HR Target HR: 139 Double Product: [id number] Stress Summary: BP Response: Normal Reason for Termination: MAX EXERTION/TARGET HR Cardiac Symptoms: LIGHTHEADEDNESS ECG Analysis Resting ECG: Normal sinus rhythm, normal ECG Stress ECG: No abnormal ST/T wave changes with exercise Arrhythmia: None Echo Analysis Resting Echo: Normal resting echocardiogram. Peak Echo Analysis: Normal wall augmentation with no hypokinesis or dyskinesis MEASUREMENTS (Male/Female) Normal Values CONCLUSIONS Patient falls into low-risk group (DTS >= +5). This associates the patient with an annual CV mortality <= 0.5%. Good exercise tolerance with normal electrocardiographic response to exercise Normal stress echocardiogram with no evidence of stress-induced ischemia Dr. Mario Vergara MD (Electronically Signed) Final Date: 04 May 2024 13:15
--- NOTE | 2024-05-04 13:19 | CA ---
Transthoracic Echo Report Name: Vel Osorio Age: 58 Gender: M : 1965 Exam Date: 05/04/2024 10:05 Exam Location: [facility] Ht (in): 72 Wt (lb): 230 Ordering Physician: Apolinar Fernandez Attending/Referring Phys: [id number] Erazo Financial Services Counselor Procedure CPT: Indications: exertional dyspnea Cardiac Hx: Technical Quality: Fair Contrast 1: Total Dose (mL): Contrast 2: Total Dose (mL): MEASUREMENTS (Male / Female) Normal Values 2D ECHO LV Diastolic Diameter PLAX 4.9 cm 4.2 - 5.9 / 3.9 - 5.3 cm LV Systolic Diameter PLAX 3.3 cm IVS Diastolic Thickness 1.0 cm 0.6 - 1.0 / 0.6 - 0.9 cm LVPW Diastolic Thickness 1.0 cm 0.6 - 1.0 / 0.6 - 0.9 cm LV Relative Wall Thickness 0.4 LVOT Diameter 2.7 cm LV Diastolic Volume MOD BP 151.0 cm??? 67 - 155 / 56 - 104 cm??? LV Systolic Volume MOD BP 62.1 cm??? 22 - 58 / 19 - 49 cm??? LV Ejection Fraction MOD BP 58.9 % >= 55 % LV Cardiac Index MOD BP 2330.1 cm???/min???m??? LV Diastolic Volume MOD 4C 160.6 cm??? LV Systolic Volume MOD 4C 72.2 cm??? LV Ejection Fraction MOD 4C 55.1 % LV Cardiac Index MOD 4C 2316.8 cm???/min???m??? LV Diastolic Length 4C 9.2 cm LV Systolic Length 4C 7.5 cm LV Diastolic Volume MOD 2C 126.8 cm??? LV Systolic Volume MOD 2C 45.1 cm??? LV Ejection Fraction MOD 2C 64.4 % LV Cardiac Index MOD 2C 2139.7 cm???/min???m??? LV Diastolic Length 2C 8.1 cm LV Systolic Length 2C 6.3 cm LA Volume 65.4 cm??? 18 - 58 / 22 - 52 cm??? LA Volume Index 28.1 cm???/m??? 16 - 28 cm???/m??? DOPPLER AV Peak Velocity 142.5 cm/s AV Peak Gradient 8.1 mmHg AV Mean Velocity 102.2 cm/s AV Mean Gradient 4.6 mmHg AV Velocity Time Integral 30.5 cm LVOT Peak Velocity 115.2 cm/s LVOT Peak Gradient 5.3 mmHg LVOT Velocity Time Integral 24.0 cm LVOT Stroke Volume 141.9 cm??? LVOT Stroke Volume Index 62.8 ml/m??? LVOT Cardiac Index 3716.5 cm???/min???m??? AV Area Cont Eq vti 4.6 cm??? AV Area Cont Eq pk 4.8 cm??? MV Area PHT 4.3 cm??? Mitral E Point Velocity 66.1 cm/s Mitral A Point Velocity 79.8 cm/s Mitral E to A Ratio 0.8 MV Deceleration Time 177.7 ms PV Peak Velocity 115.0 cm/s PV Peak Gradient 5.3 mmHg FINDINGS Left Ventricle Left ventricular ejection fraction is estimated at 55-60 %. Mildly increased left ventricular systolic volume. Left ventricular wall thickness normal. No obvious regional wall motion abnormalities. Right Ventricle Normal right ventricular size and function. Unable to estimate the right ventricular systolic pressure. Right Atrium Normal right atrial size. Left Atrium Mildly increased left atrial volume. Mitral Valve Structurally normal mitral valve. No evidence for mitral valve prolapse. No mitral stenosis. Mild mitral regurgitation. Aortic Valve Trileaflet aortic valve. No aortic stenosis. Mild aortic regurgitation. Tricuspid Valve Structurally normal tricuspid valve. No tricuspid stenosis. No tricuspid regurgitation. Pulmonic Valve Pulmonic valve not well visualized. No pulmonic stenosis. Trace pulmonic regurgitation. Pericardium No pericardial effusion. Aorta Mild aortic dilatation at the level of the sinuses of valsalva (root). Mildly dilated proximal ascending aorta (tube). CONCLUSIONS 1. Normal ventricular size and systolic function 2. Mild mitral and aortic regurgitation Previewed by: Dr. Mario Vergara MD (Electronically Signed) Final Date: 04 May 2024 13:18
[2024-05-04 15:20] VITALS: BP 128/80; PULSE 86; TEMP 98.4
--- NOTE | 2024-05-04 21:36 | P.DS ---
Providers Date of admission: 05/03/24 12:05 Expected date of discharge: 05/04/24 Attending physician: Tate Ivey Consults: 05/03/24 10:51 Consult Physician Urgent Consulting Provider: Keyur Candelaria Consult Reason/Comments: chest pain Do you want consulting provider notified?: Yes Primary care physician: Tate Ivey - Discharge Diagnosis(es) (1) Chest pain Status: Acute (2) Exertional dyspnea Status: Acute (3) Hypertension Status: Acute Hospital Course: This is a pleasant 58-year-old white male who was admitted for acute atypical chest pain coronary event was ruled out by negative troponins by 3 and underwent cardiac testing he is deemed safe to be discharged today is without chest pain his blood pressure medications were adjusted accordingly. He was encouraged to cut back or abstain from alcohol. He will follow-up in the office in 1 week. Patient Condition at Discharge: Fair Plan - Discharge Summary Discharge Rx Participant: Yes New Discharge Prescriptions: New Aspirin 81 mg PO DAILY tab hydroCHLOROthiazide [Hydrodiuril] 25 mg PO DAILY #90 tab Continue Multivitamins, Thera [Multivitamin (formulary)] 1 tab PO DAILY Rosuvastatin [Crestor] 10 mg PO DAILY Losartan Potassium 100 mg PO DAILY Discharge Medication List Multivitamins, Thera [Multivitamin (formulary)] 1 tab PO DAILY 03/08/17 [History] Rosuvastatin [Crestor] 10 mg PO DAILY 03/08/17 [History] Losartan Potassium 100 mg PO DAILY 05/03/24 [History] Aspirin 81 mg PO DAILY tab 05/04/24 [Rx] hydroCHLOROthiazide [Hydrodiuril] 25 mg PO DAILY #90 tab 05/04/24 [Rx] Follow up Appointment(s)/Referral(s): Tate Ivey DO [Primary Care Provider] - 1 Week Patient Instructions/Handouts: Chest Pain (DC) Discharge Disposition: HOME SELF-CARE
[2024-05-05] MEDS ORDERED: ASPIRIN 81 MG PO SCH (09:00)
== END 2024-05-04 17:00 | disposition home or self-care (01) ==
LOC: EC 08:44 → 6NMEDSUR 12:05
PROVIDERS: ADMIT Family Medicine; ATTEND Family Medicine
DX: R07.89 Other chest pain (principal); R06.09 Other forms of dyspnea; I10 Essential (primary) hypertension; E78.5 Hyperlipidemia, unspecified; G47.33 Obstructive sleep apnea (adult) (pediatric); E66.9 Obesity, unspecified; Z68.31 Body mass index [BMI] 31.0-31.9, adult; Z79.899 Other long term (current) drug therapy
CPT/HCPCS: 99285; 36415; 94760; 93005; 93306; 93351; 85379; 83880; 80061; 80053 ×2; 83735; 84484; 85025 ×2; 85610; 85730; 83036; 71046; G0378 ×2; Q9957

== ENCOUNTER → 2024-06-09 | Outpatient (CLI) | payer BC ==
--- NOTE | 2024-07-03 | EM ---
EVENT MONITOR The patient was monitored between the and May. CLINICAL INFORMATION: Baseline rhythm is a sinus mechanism with borderline first-degree AV block. The average rate 72 beats per minute, minimum 50, maximum 120 beats per minute. Ventricular ectopic activity was present in the form of rare single PVCs. Supraventricular ectopic activity was present in the form of rare single PACs. Symptoms of lightheadedness and dizziness correlated with sinus mechanism. No atrial fibrillation was noted. MMODL / IJN: [id number] /
== END | disposition home or self-care (01) ==
LOC: RADECHMAIN 07:58
PROVIDERS: ATTEND Family Medicine
DX: I44.0 Atrioventricular block, first degree (principal); I49.3 Ventricular premature depolarization; I34.0 Nonrheumatic mitral (valve) insufficiency; R00.2 Palpitations
CPT/HCPCS: 93270